=== PATIENT | female | born 1965 | race Caucasian/White ===

== ENCOUNTER 2017-01-09 12:06 | Emergency (ER) | payer OTHER ==
[~2017-01-09] VITALS: Wt 70.0 kg
[2017-01-09] MEDS ORDERED: KETOROLAC 30 MG INJ IM STA (13:11)
[2017-01-09] MEDS ORDERED: HYDROCODONE/APAP (5/325) TAB PO ONE (13:30)
--- NOTE | 2017-01-09 14:10 | RADRPT ---
PROCEDURE: XR Humerus. CLINICAL INDICATION: Fall, trauma TECHNIQUE: AP and lateral views of the left humerus were performed. COMPARISON: None. FINDINGS: There is no acute fracture or dislocation of the humerus. The glenohumeral joint is intact. The so ft tissues are unremarkable. RPTAT: NESSA IMPRESSION: 1. Unremarkable left humerus. .Veronica Oswald MD, MD Date Time Electronically viewed and signed by .Veronica Oswald MD, on 01/09/2017 14:09 .T/
--- NOTE | 2017-01-09 14:12 | RADRPT ---
PROCEDURE: XR Left Wrist. CLINICAL INDICATION: Fall, trauma TECHNIQUE: Three views of the left wrist were obtained. COMPARISON: No prior studies are available for comparison. FINDINGS: Note that the examination is limited due to the patient positioning. There is an old ulnar styloid avulsion fracture. No acute fracture is present. The joint spaces are slightly limited in evaluati on due to the patient positioning without significant joint space narrowing. No erosive changes are visualized. The carpal bones appear intact. The soft tissues are unremarkable. RPTAT: ZZ IMPRESSION: 1. No acute bony abnormality. 2. Old avulsion fracture of the ulnar styloid. .Veronica Oswald MD, MD Date Time Electronically viewed and signed by .Veronica Oswald MD, on 01/09/2017 14:11 .T/
--- NOTE | 2017-01-09 14:14 | RADRPT ---
PROCEDURE: XR Left foot. CLINICAL INDICATION: Fall, trauma TECHNIQUE: Three views of the left foot were obtained. COMPARISON: No prior studies are available for comparison. FINDINGS: There is no acute fracture or dislocation. The metatarsals are in alignment with the cuneiforms. Th ere is a bipartite medial sesamoid. The joint spaces are maintained. There is soft tissue swelling along the anterior aspect of the ankle. RPTAT: ZZ IMPRESSION: 1. No acute bony abnormality. 2. Soft tissue swelling around the ankle. Correlation with ankle radiographs may be helpful. .Veronica Oswald MD, MD Date Time Electronically viewed and signed by .Veronica Oswald MD, on 01/09/2017 14:13 .T/
--- NOTE | 2017-01-09 14:16 | RADRPT ---
PROCEDURE: XR Forearm. CLINICAL INDICATION: Fall, trauma TECHNIQUE: AP and lateral views of the left forearm were obtained. COMPARISON: No prior studies are available for comparison. FINDINGS: There is an acute mildly displaced comminuted oblique fracture of the proximal ulnar diaphysis with about 4 - 5 mm dorsal and radial displacement of the distal fracture fragment. The fracture is at th e level of the radial tuberosity and about 3.4 cm distal to the ulnohumeral joint. The radius is in tact. Soft tissues are unremarkable. RPTAT: ZZ IMPRESSION: Acute mildly displaced comminuted oblique fracture of the proximal ulnar diaphysis. .Veronica Oswald MD, MD Date Time Electronically viewed and signed by .Veronica Oswald MD, on 01/09/2017 14:16 .T/
--- NOTE | 2017-01-09 14:25 | ERD ---
ER Documentation Chief Complaint Date/Time DATE: 01/09/17 TIME: 14:22 Chief Complaint FALL FROM 3 STEPS LEFT WRIST AND L SHOULDER PAIN . NO DEFORMITY NOTED. HPI This a 51-year-old female who presents the emergency department today with her for multiple areas of pain after slipping and falling down 3 steps at her house today. States she has pain in her left arm and her left foot. 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 States she has a history of complex regional pain syndrome for the past 5 years and usually takes ibuprofen and gabapentin. States she does have a neurologist. Denies any fevers or chills. ROS All systems reviewed and are negative except as per history of present illness. Medications Home Meds Active Scripts Ibuprofen* (Motrin*) 800 Mg Tab, 800 MG PO Q6, #30 TAB Prov:SAM WATSON PA-C 01/09/17 Tramadol HCl (Tramadol HCl) 50 Mg Tablet, 50 MG PO Q4 Y for PAIN, #20 TAB Prov:SAM WATSON PA-C 01/09/17 Allergies Allergies: Coded Allergies: Penicillins (Verified Allergy, Mild, 01/09/17) acetaminophen (Verified Allergy, Mild, 01/09/17) hydrocodone (Verified Allergy, Mild, 01/09/17) Uncoded Allergies: SULFA (Allergy, Mild, 01/09/17) PMhx/Soc Hx Respiratory Disorders: Yes (asthma) Hx Miscellaneous Medical Probl: Yes (CRPS ( COMPLEX REGIONAL PAIN SYNDROME)) Hx Alcohol Use: No Hx Substance Use: No Hx Tobacco Use: No Smoking Status: Never smoker Physical Exam Vitals Vital Signs Date Time Temp Pulse Resp B/P Pulse Ox O2 Delivery O2 Flow Rate FiO2 01/09/17 12:21 98.8 99 22 155/94 97 Physical Exam Const: Sitting in wheelchair, pain out of proportion to exam Head: Atraumatic Eyes: Normal Conjunctiva ENT: Normal External Ears, Nose and Mouth. Neck: Full range of motion..~ No meningismus. Resp: Clear to auscultation bilaterally Cardio: Regular rate and rhythm, no murmurs Abd: Soft, non tender, non distended. Normal bowel sounds Skin: No petechiae or rashes Back: No midline or flank tenderness Ext: No cyanosis, or edema. Left arm diffuse pain with palpation. Unable to assess range of motion secondary to pain. Pulses 2+. Distal neurovascularly intact. Left foot with no obvious deformity. No effusion. No ecchymosis. Diffusely tender to palpation foot and ankle. Unable to assess range of motion secondary to pain. Pulses 2+. Distal neurovascularly intact left Neur: Awake and alert Psych: Normal Mood and Affect Results 24 hrs Current Medications Medications (Trade) Dose Ordered Sig/Mari Route PRN Reason Start Time Stop Time Status Last Admin Dose Admin Acetaminophen/ Hydrocodone Bitart ([place] (5/325)) 1 tab ONCE ONCE PO 01/09/17 13:30 01/09/17 13:31 Cancel Ketorolac Tromethamine (Toradol) 30 mg ONCE STAT IM 01/09/17 13:11 01/09/17 13:12 DC 01/09/17 13:17 Tramadol HCl (Ultram) 50 mg ONCE ONCE PO 01/09/17 16:00 01/09/17 16:01 DIAGNOSTIC IMAGING REPORT Patient: COLIN HOWELL : 1965 Age: 51 Sex: F MR #: [id number] DOS: 01/09/17 0000 Ordering MD: SAM WATSON PA-C Location: [facility] Room/Bed: PROCEDURE: XR Left foot. CLINICAL INDICATION: Fall, trauma TECHNIQUE: Three views of the left foot were obtained. COMPARISON: No prior studies are available for comparison. FINDINGS: There is no acute fracture or dislocation. The metatarsals are in alignment with the cuneiforms. There is a bipartite medial sesamoid. The joint spaces are maintained. There is soft tissue swelling along the anterior aspect of the ankle. RPTAT: ZZ IMPRESSION: 1. No acute bony abnormality. 2. Soft tissue swelling around the ankle. Correlation with ankle radiographs may be helpful. .Veronica Oswald MD, Date Time Electronically viewed and signed by .Veronica Oswald MD, on 01/09/2017 14: 13 .T/ CC: SAM WATSON PA-C DIAGNOSTIC IMAGING REPORT Patient: COLIN HOWELL : 1965 Age: 51 Sex: F MR #: [id number] DOS: 01/09/17 0000 Ordering MD: SAM WATSON PA-C Location: [facility] Room/Bed: PROCEDURE: XR Forearm. CLINICAL INDICATION: Fall, trauma TECHNIQUE: AP and lateral views of the left forearm were obtained. COMPARISON: No prior studies are available for comparison. FINDINGS: There is an acute mildly displaced comminuted oblique fracture of the proximal ulnar diaphysis with about 4 - 5 mm dorsal and radial displacement of the distal fracture fragment. The fracture is at the level of the radial tuberosity and about 3.4 cm distal to the ulnohumeral joint. The radius is intact. Soft tissues are unremarkable. RPTAT: ZZ IMPRESSION: Acute mildly displaced comminuted oblique fracture of the proximal ulnar diaphysis. .Veronica Oswald MD, MD Date Time Electronically viewed and signed by .Veronica Oswald MD, on 01/09/2017 14: 16 .T/ CC: SAM WATSON PA-C DIAGNOSTIC IMAGING REPORT Patient: COLIN HOWELL : 1965 Age: 51 Sex: F MR #: [id number] DOS: 01/09/17 0000 Ordering MD: SAM WATSON PA-C Location: [facility] Room/Bed: PROCEDURE: XR Humerus. CLINICAL INDICATION: Fall, trauma TECHNIQUE: AP and lateral views of the left humerus were performed. COMPARISON: None. FINDINGS: There is no acute fracture or dislocation of the humerus. The glenohumeral joint is intact. The soft tissues are unremarkable. RPTAT: ZZ IMPRESSION: 1. Unremarkable left humerus. .Veronica Oswald MD, MD Date Time Electronically viewed and signed by .Veronica Oswald MD, MD on 01/09/2017 14: 09 .T/ CC: SAM WATSON PA-C DIAGNOSTIC IMAGING REPORT Patient: COLIN HOWELL : 1965 Age: 51 Sex: F MR #: [id number] DOS: 01/09/17 0000 Ordering MD: SAM WATSON PA-C Location: [facility] Room/Bed: PROCEDURE: XR Left Wrist. CLINICAL INDICATION: Fall, trauma TECHNIQUE: Three views of the left wrist were obtained. COMPARISON: No prior studies are available for comparison. FINDINGS: Note that the examination is limited due to the patient positioning. There is an old ulnar styloid avulsion fracture. No acute fracture is present. The joint spaces are slightly limited in evaluation due to the patient positioning without significant joint space narrowing. No erosive changes are visualized. The carpal bones appear intact. The soft tissues are unremarkable. RPTAT: ZZ IMPRESSION: 1. No acute bony abnormality. 2. Old avulsion fracture of the ulnar styloid. .Veronica Oswald MD, MD Date Time Electronically viewed and signed by .Veronica Oswald MD, MD on 01/09/2017 14: 11 .T/ CC: SAM WATSON PA-C DIAGNOSTIC IMAGING REPORT Patient: COLIN HOWELL : 1965 Age: 51 Sex: F MR #: [id number] DOS: 01/09/17 0000 Ordering MD: SAM WATSON PA-C Location: [facility] Room/Bed: PROCEDURE: XR Ankle. CLINICAL INDICATION: Fall/trauma TECHNIQUE: Three views of the left ankle were performed. COMPARISON: None. FINDINGS: There is no acute osseous or articular abnormality. No evidence for fracture. Bone mineral density is preserved. The articular surfaces are smooth without evidence of marginal erosions. The ankle mortise is preserved. Minimal enthesopathic changes are present at the Achilles insertion and plantar fascia origin. Mild lateral soft tissue swelling is present. IMPRESSION: 1. No acute osseous abnormality. 2. Mild soft tissue swelling about the ankle. RPTAT: UU .Zachary Singh MD, MD Date Time Electronically viewed and signed by .Zachary Singh MD, MD on 01/09/2017 15:18 .d/ CC: SAM WATSON PA-C Procedures/MDM This is a 51-year-old female who presents the emergency department today complaining of left arm and left foot pain after sustaining a mechanical fall earlier today. Patient does have a history of complex regional pain syndrome and was very difficult to obtain a good exam. Patient was complaining of left arm pain and therefore did obtain multiple images of the left arm. She also complained of left foot pain and I did obtain images of that as well peer Images of the left foot show no acute bony abnormality. There is no acute fracture dislocation. Metatarsals are in alignment. There is a bipartite medial sesamoid. Joint spaces are maintained.. There is soft tissue swelling around the ankle. Images of the left ankle show no acute osseous abnormality. There is no evidence for fracture. There is mild soft tissue swelling about the ankle. Images of the left forearm show an acute mildly displaced comminuted oblique fracture of the proximal ulna diaphysis with about 4-5 mm dorsal and radial displacement of the distal fracture fragment. Fractures at the level of the radial tuberosity and about 3.4 cm distal to the ulnar humeral joint. Radius is intact. Images of the left humerus are unremarkable. There is no acute fracture dislocation. Glenohumeral joint is intact. Soft tissues are unremarkable Images of the left wrist show an old avulsion fracture of the ulnar styloid. There is no acute bony abnormality. Soft tissues are unremarkable Patient does have a mildly displaced comminuted oblique fracture of the proximal ulna diaphysis and this is likely the source of the patient's arm pain. This is likely compounded with patient's history of complex regional pain syndrome as well. Patient was placed in a splint and sling. She was distal neurovascularly intact pre-and post splint application. She is instructed to follow-up with her primary care doctor for referral to production specialist as well as her neurology specialist. Patient has multiple allergies to pain medications and she was therefore given a Toradol injection here in the emergency department. Patient did continue to have some pain was therefore given tramadol here in the emergency department prior to discharge. She will get a short course of tramadol for home and she may take her usual pain medication for her CRPS which includes ibuprofen, a muscle relaxant and gabapentin.. Discussed the patient with Dr. Connor and he is in agreement with the plan. Departure Diagnosis: Primary Impression: Fall Encounter type: initial encounter Qualified Code: W19.XXXA - Fall, initial encounter Additional Impression: Ulna fracture Encounter type: initial encounter Ulna location: proximal ulna Fracture type: closed Fracture morphology: unspecified fracture morphology Laterality : left Qualified Code: S52.002A - Closed fracture of proximal end of left ulna, unspecified fracture morphology, initial encounter Condition: SAM Evans PA-C Jan 09, 2017 14:25
--- NOTE | 2017-01-09 15:18 | RADRPT ---
PROCEDURE: XR Ankle. CLINICAL INDICATION: Fall/trauma TECHNIQUE: Three views of the left ankle were performed. COMPARISON: None. FINDINGS: There is no acute osseous or articular abnormality. No evidence for fracture. Bone mineral density is preserved. The articular surfaces are smooth without evidence of marginal erosions. The ankle mo rtise is preserved. Minimal enthesopathic changes are present at the Achilles insertion and plantar fascia origin. Mild lateral soft tissue swelling is present. IMPRESSION: 1. No acute osseous abnormality. 2. Mild soft tissue swelling about the ankle. RPTAT: UU .Zachary Singh MD, Date Time Electronically viewed and signed by .Zachary Singh MD, on 01/09/2017 15:18 .d/
[2017-01-09] MEDS ORDERED: TRAM50TA2 PO (15:35)
[2017-01-09] MEDS ORDERED: IBUP800T25 PO (15:35)
[2017-01-09] MEDS ORDERED: traMADol 50 MG TAB PO ONE (16:00)
[2017-01-09 16:01] VITALS: BP 134/77; PULSE 86; RESP 20; TEMP 98.3
== END 2017-01-09 16:02 | disposition home or self-care (01) ==
LOC: E/R 12:06 → FTE 16:02
DX: S52.092A Other fracture of upper end of left ulna, initial encounter for closed fracture (principal); J45.909 Unspecified asthma, uncomplicated; W10.8XXA Fall (on) (from) other stairs and steps, initial encounter; Y92.9 Unspecified place or not applicable
CPT/HCPCS: 29105; 73060; 73090; 73110; 73610; 73630; 96372; 99284; J1885